=== PATIENT | male | born 1955 | race Caucasian/White ===

== ENCOUNTER 2019-01-23 10:47 | Emergency (ER) | payer OTHER, SELFPAY ==
[2019-01-23 10:51] VITALS: BP 152/89; PULSE 89; RESP 16; TEMP 36.6; O2SAT 98
--- NOTE | 2019-01-23 11:29 | DI.RAD_ITS ---
SYMPTOM/DIAGNOSIS; FALL, RT LOWER RIB PAIN PA AND LATERAL CHEST AND RIGHT RIBS: 7/8 PA and lateral chest and two additional oblique views of the right ribs were obtained. There is diffuse interstitial prominence of both lungs. No focal consolidation seen. No pleural effusion or pneumothorax. Mild deformities of anterior right ribs 5 and 8 are noted. The patient's recent trauma/pain is somewhat remote from these areas and these may represent old healed rib fractures which the patient states he has had. No definite acute rib fracture seen corresponding to mid axillary line tenderness. CONCLUSION: No evidence of pneumothorax. No convincing acute rib fracture.
--- NOTE | 2019-01-23 13:39 | W.ED.GENAD ---
Discharge Plan Disposition Patient Disposition: HOME Condition: Stable Discharge Details Chief Complaint: Nk/Back Pain Primary Care Provider: Raffaele Ennis ED Provider: Jeffrey Velasco Home Meds and New Rx's Prescriptions: New lidocaine 5 % adhesive patch,medicated 1 patch TP DAILY PRN (Reason: pain) Qty: 15 RF: 0 Continued amlodipine 10 mg tablet 10 mg PO DAILY Qty: 90 RF: 3 mometasone 45 GM cream 45 gm Topical BID PRN Qty: 1 RF: 3 Discharge Data Discharge Date/Time-TO BE ENTERED AT DEPARTURE: 01/23/19 14:03 Medical Decision Making Patient presenting to the emergency department for chief complaint of right rib pain. Patient states mechanical fall 9 days ago in which he fell onto a coffee table striking his right lower and lateral ribs. Patient saw his primary care provider who recommended conservative therapy but did not do any imaging. Patient is concerned due to previous rib fractures and this feeling similar. Physical exam shows tenderness and ecchymosis to the right lateral lower ribs otherwise unremarkable benign exam with clear lung sounds are all lung munoz and no other worrisome findings. Given patient's concern plan to do radiological imaging. Pending radiological imaging patient given lidocaine patch. Review of radiological imaging and speaking with radiologist patient has what appears to be possible old anterior rib fractures but in the area of concern no acute identifiable fracture is noted. Did discuss these findings with patient along with possibility of this also being nondisplaced rib fractures that are difficult to identify. Patient was encouraged to continue to use conservative therapy, lidocaine patches and deep breathing. Return precautions were discussed. After discussion of diagnosis and plan of care patient has no further needs, questions, or concerns and states clear understanding to return to the emergency department for any worsening symptoms. HPI General Mode of arrival: ambulatory. Date/Time Provider Initiated Documentation: 01/23/19 11:05. Limitations to Documentation: no limitations. Information obtained by: patient and RN notes reviewed. History of Present Illness 63 year old M presents to the emergency department with the chief complaint of rib pain, described as moderate and similar to prior episodes, with intensity rated at 8. Quality is described as aching and dull, and is localized to the chest (right chest wall). Patient started experiencing this day(s) (9) and it has been constant. Patient notes no other symptoms.. Patient did receive the following treatments prior to arrival, NSAID Related Data Home Medications Medication Instructions Recorded Confirmed mometasone 45 gm TOPICAL BID PRN #1 script 02/02/18 01/16/19 amlodipine 10 mg tablet 10 mg PO DAILY #90 tab 01/16/19 01/16/19 lidocaine 1 patch TP DAILY PRN #15 each 01/23/19 Previous Rx's Medication Instructions Recorded mometasone 45 gm TOPICAL BID PRN #1 script 02/02/18 amlodipine 10 mg tablet 10 mg PO DAILY #90 tab 01/16/19 lidocaine 1 patch TP DAILY PRN #15 each 01/23/19 Allergies Allergy/AdvReac Type Severity Reaction Status Date / Time No Known Allergies Allergy Unverified 01/16/19 09:28 General Stated Complaint: Nk/Back Pain DIRK: 4 Review of Systems Constitutional Denies chills and Denies fever(s) Cardiovascular Denies rapid heart rate, Denies irregular heart rhythm, Denies palpitations and Reports other (chest wall pain) Respiratory Denies chest congestion, Denies cough, Denies hemoptysis, Reports pain on inspiration and Reports pain with cough Gastrointestinal Denies abdominal pain Endocrine Denies palpitations [facility] Social History Smoking/Tobacco Use Status: Former Tobacco Use Quit Date: 07/25/16 Drug use: Never Substance use type: does not use Exam Const General: cooperative, no acute distress and not ill appearing Orientation: alert, awake and oriented x3 HENMT Mouth: moist mucous membranes Chest Chest: abnormal inspection of the chest (Ecchymosis right lower mid axillary), no crepitus, localized rib tenderness with anteroposterior compression (R. Ribs posterior7-10) and tenderness rib (Lateral and posterior right lower ribs) Resp Effort & Inspection: normal respiratory effort, able to speak in complete sentences and no respiratory distress Auscultation: clear to auscultation bilaterally and lung sounds not diminished Cardio Rate: regular rate Rhythm: regular rhythm Heart Sounds: S1 normal and S2 normal Skin General skin exam: no rashes or lesions noted Neuro General: alert, awake, oriented x3, moves all extremities and no focal motor deficits Sensory Exam: no sensory deficits noted Course Vital Signs Temperature 36.6 C 01/23/19 10:51 Pulse 89 01/23/19 10:51 Respiratory Rate 16 01/23/19 10:51 Blood Pressure 152/89 H 01/23/19 10:51 Pulse Oximetry 98 01/23/19 10:51 Temperature 36.6 C 01/23/19 10:51 Temperature Source Skin 01/23/19 10:51 Pulse 89 01/23/19 10:51 Respiratory Rate 16 01/23/19 10:51 Respiratory Effort Non-Labored 01/23/19 10:51 Blood Pressure 152/89 H 01/23/19 10:51 Pulse Oximetry 98 01/23/19 10:51 Oxygen Delivery Method Room Air 01/23/19 10:51 Oxygen Flow Rate 0 01/23/19 10:51 Pain Level 8 01/23/19 10:51
== END 2019-01-23 14:03 | disposition home or self-care (01) ==
PROVIDERS: Emergency Provider Nurse Practitioner Family; PCP Family Medicine
DX: S20.221A Contusion of right back wall of thorax, initial encounter (principal); W01.190A Fall on same level from slipping, tripping and stumbling with subsequent striking against furniture, initial encounter
CPT/HCPCS: 99283; 71046; 71100